=== PATIENT | female | born 1955 | race Caucasian/White ===

== ENCOUNTER 2016-12-02 12:24 | Inpatient (IN) | payer OTHER, BC ==
[~2016-12-02] VITALS: Ht 172.7 cm; Wt 73.7 kg
--- NOTE | ~2016-12-02 | EKG ---
[place] [address] [facility] [place] [address] ELECTROCARDIOGRAM REPORT Name: ELIESER BAUTISTA Room #: 208-P ADM IN M.R.#: [id number] Admission: 12/02/16 Attend Phys: Brandon Ferguson MD Discharge: Date of : 51 Report #: [id number] THIS REPORT FOR: //name// [facility] ED Test Date: 2016-12-02 Test Time: 12:25:25 Pat Name: ELIESERCHARLIE BAUTISTA Department: Room: 208 Gender: F Computational Physicist: MICHAEL : 1955 Requested By: Noam Dickerson Order Number: [id number] MD: Clovis Roque Measurements Intervals [place] Rate: 68 P: 35 NC: 196 QRS: -49 QRSD: 129 T: 115 QT: 464 QTc: 494 Interpretive Statements Sinus rhythm LVH with IVCD, LAD and secondary repol abnrm Anterior ST elevation, probably due to LVH Borderline prolonged QT interval Compared to ECG 03/27/2014 07:28:22 Intraventricular conduction delay now present ST (T wave) deviation now present Left-axis deviation no longer present Myocardial infarct finding no longer present Electronically Signed On 12-02-2016 22:30:04 CDT by Clovis Roque [email or web address] <ELECTRONICALLY SIGNED> By: Clovis Roque MD 12/02/16 2230 1225 1225 Clovis Roque MD /EPI
--- NOTE | ~2016-12-02 | EKG ---
[place] [address] [facility] [place] [address] ELECTROCARDIOGRAM REPORT Name: ELIESER BAUTISTA Room #: 208-P ADM IN M.R.#: [id number] Admission: 12/02/16 Attend Phys: Brandon Ferguson MD Discharge: Date of : 51 Report #: [id number] THIS REPORT FOR: //name// [facility] Test Date: 2016-12-04 Test Time: 11:56:22 Pat Name: ELIESER BAUTISTA Department: Room: 208 P Gender: F Cutter Finisher: Mag SAHU : 1955 Requested By: Joshua Levy Order Number: [id number] MD: Vik Pahm Measurements Intervals [place] Rate: 69 P: 58 MN: 210 QRS: -50 QRSD: 126 T: 93 QT: 464 QTc: 497 Interpretive Statements Sinus rhythm with first-degree AV block LVH with IVCD, LAD and secondary repol abnrm Anterior ST elevation, probably due to LVH Borderline prolonged QT interval Compared to ECG 12/03/2016 07:57:26 No significant change was found Electronically Signed On 12-05-2016 8:23:47 CDT by Vik Pham [email or web address] <ELECTRONICALLY SIGNED> By: Vik Pham MD, [facility] 12/05/16 0823 1156 1156 Vik Pham MD, [facility] /EPI
--- NOTE | ~2016-12-02 | EKG ---
[place] [address] [facility] [place] [address] ELECTROCARDIOGRAM REPORT Name: ELIESER BAUTISTA Room #: 208-P ADM IN M.R.#: [id number] Admission: 12/02/16 Attend Phys: Brandon Ferguson MD Discharge: Date of : 51 Report #: [id number] THIS REPORT FOR: //name// [facility] Test Date: 2016-12-03 Test Time: 07:57:26 Pat Name: ELIESER BAUTISTA Department: Room: 208 P Gender: F Pharmaceutical Worker: Mag SAHU : 1955 Requested By: Brandon Ferguson Order Number: [id number] MD: Vik Pham Measurements Intervals [place] Rate: 71 P: 21 DE: 224 QRS: -47 QRSD: 127 T: 95 QT: 453 QTc: 493 Interpretive Statements Sinus rhythm Prolonged DE interval Nonspecific IVCD with LAD Left ventricular hypertrophy with repolarization abnormality Anterior Q waves, possibly due to LVH Compared to ECG 12/02/2016 12:25:25 No significant change was found Electronically Signed On 12-04-2016 8:44:59 CDT by Vik Pham [email or web address] <ELECTRONICALLY SIGNED> By: Vik Pham MD, [facility] 12/04/16 0844 0757 0757 Vik Pham MD, [facility] /EPI
--- NOTE | ~2016-12-02 | CATHLAB ---
[facility] [employer] [place] [address] INVASIVE PROCEDURE REPORT Name: ELIESER BAUTISTA Room #: 208-P [facility] IN [facility]#: [id number] Admission: 12/02/16 Attend Phys: Brandon Ferguson, Discharge: Date of : 51 Date of Service: 12/04/16 1425 Report #: [id number] THIS REPORT FOR: //name// APPROVED REPORT Patient Details Patient Status: In-Patient Room #: The patient is a 61 year-old female Event Personnel Joshua Levy Assistant Pastry Chef, Jaqueline Stewart RN RN, Jenn HardwickubNesha David Monitor, Mena Rogers Monitor Procedures Performed Left Heart Cath Coronaries, By[facility] Graft[facility] [id number] [facility] Coronary Angiography with grafts, Left Heart Catheterization Indication Unstable angina Risk Factors Hypercholesterolemia, Coronary Artery DiseaseRenal Failure Previous Procedures/Diagnoses Previous CABGPrevious PCI, Previous FL Procedure Narrative The Right Groin^ was infiltrated with 1% Lidocaine subcutaneous anesthesia. A PINNACLE 4FR Sheath #[id number] sheath was inserted into the RFA^. Coronary angiography was performed using coronary diagnostic catheters. The right coronary system was accessed and visualized with a JR4 catheter. The left coronary system was accessed and visualized with a JL4 catheter. The left ventricle was accessed and visualized with a MP2 catheter. Left ventricular/Aortic Valve gradient assessed via catheter pullback. The patient tolerated the procedure well and there were no complications associated with the procedure. Intraoperative Conscious Sedation Sedation start time: 10:08 Case end Time: 11:02 Versed 2.0 mg [facility] [address] [place] [address] INVASIVE PROCEDURE REPORT Name: ELIESER BAUTISTA Room #: 208-P [facility]#: [id number] Admission: 12/02/16 Attend Phys: Brandon Ferguson, Discharge: Date of : 51 Date of Service: 12/04/16 1425 Report #: [id number] Fluoro Time: 18.46 minutes Dose: 1318 mGy Contrast Type and Amount: Visipaque 200 ml Coronary Angiography The patient's coronary anatomy is right dominant. Diagnostic Cath Left Main No obstructive lesions. LAD Total occlusion at the ostium. Patent HERNÁNDEZ graft, however, after the anastomosis there is severe diffuse disease in the mid and LAD segments. Circumflex Multiple overlapping stents in the proximal and mid segments of the left circumflex artery, patent with minimal restenosis. However, this supplies a small distal marginal artery. Right Coronary Patent SVG to the distal RCA, fills a moderate size PDA and right posterior lateral branch. No flow-limiting lesions within the vein graft or arterial branches. Supplies collateral blood flow to septal perforators, apical LAD, distal marginals. Ramus Multiple overlapping stents in the proximal and mid segments of the ramus artery, patent with no flow-limiting lesions. Left Ventriculography Left Ventriculography was not performed. Ejection Fraction was 25-30% based off patient's Echocardiogram. Hemodynamics The aortic pressure is 176/66 mmHg with a mean of 113 mmHg. The left ventricular pressure is 180/16 mmHg with a mean of mmHg. The left ventricular end diastolic pressure is 31 mmHg. PCI Technique Lesion A LAUNCHER 6FR AR1 #[id number] Guide Catheter was used to engage the SVG ostium. A Luge Wire .014 x 182CM #[id number] Interventional Guidewire was used to cross the lesion. BALLOON DILATION A Balloon catheter Sprinter OTW 3.0 x 15 #[id number] was inserted and inflated up to adela for seconds. The vein graft to the distal marginal branch was attempted. I was able to pass a wire to the distal segment of the vein graft. Injection through a small end hole balloon revealed a total occlusion. This occlusion appears to be chronic and not a acute event. [facility] [address] [place] [address] INVASIVE PROCEDURE REPORT Name: ELIESER BAUTISTA Room #: 208-P [facility] IN ..#: [id number] Admission: 12/02/16 Attend Phys: Brandon Ferguson, Discharge: Date of : 51 Date of Service: 12/04/16 1425 Report #: [id number] Conclusion 1. Unsuccessful PCI involving a SVG to a terminal OM branch- there is a total occlusion at the distal segment of the vein graft, most likely a chronic occlusion. 2. Patent stents in the [place] ramus artery and left circumflex artery. 3. Patent SVG, supplying blood to a moderate size PDA and right posterior lateral artery. 4. Severe diffuse disease in the mid and distal segments of the [place] LAD, medical therapy is recommended. Recommendations Cardiac Rehabilitation Referral Medical Therapy <ELECTRONICALLY SIGNED> By: Joshua Levy MD 12/04/16 1425 1425 1425 Joshua Levy MD /INF
--- NOTE | ~2016-12-02 | 2DMMODE ---
[facility] [address] [place] [address] 2 D/M-MODE ECHOCARDIOGRAM Name: ELIESER BAUTISTA Room #: 208-P [facility] IN ..#: [id number] Admission: 12/02/16 Attend Phys: Brandon Ferguson, Discharge: Date of : 51 Date of Service: 12/03/16 1541 Report #: [id number] THIS REPORT FOR: //name// APPROVED REPORT Study performed: 12/03/2016 13:54:13 EXAM: Comprehensive 2D, Doppler, and color-flow Echocardiogram Patient Location: Bedside Room #: 208 Indications Diabetes CAD Hypertension/HDD 2D Dimensions RVDd: 34.32 mm LVEF(%): 40.07 (>50%) IVSd: 12.27 (7-11mm) LVOT Diam: 19.25 (18-24mm) LVDd: 51.44 mm PWd: 11.92 (7-11mm) Ascending Ao: 28.14 (22-36mm) LVDs: 41.34 (25-40mm) Aortic Root: 26.33 mm IVC: 11.00 mm Moran's LVEF: 40.07 % Volumes Left Atrial Volume (Systole) Single Plane 4CH: 53.64 mL Single Plane 2CH: 41.27 mL LA ESV Index: 30.00 mL/m2 Aortic Valve AoV Peak Mannie.: 2.32 m/s AO Peak Gr.: 21.51 mmHg LVOT Max P.72 mmHg AO Mean Gr.: 9.30 mmHg LVOT Mean P.92 mmHg AO V2 Mean: 1.40 m/s LVOT Max V: 0.96 m/s AO V2 VTI: 50.34 cm LVOT Mean V: 0.64 m/s JIMENEZ (VTI): 1.31 cm2 LVOT V1 VTI: 22.74 cm JIMENEZ Vmax: 1.21 cm2 SV (LVOT): 66.13 mL Mitral Valve E/A Ratio: 0.9 MV Decel. Time: 163.36 ms MV E Max Mannie.: 0.87 m/s [facility] [place] [address] 2 D/M-MODE ECHOCARDIOGRAM Name: ELIESER BAUTISTA Room #: 208-P [facility]#: [id number] Admission: 12/02/16 Attend Phys: Brandon Ferguson, Discharge: Date of : 51 Date of Service: 12/03/16 1541 Report #: [id number] MV A Mannie.: 0.93 m/s MV PHT: 47.37 ms IVRT: 93.43 ms Pulmonary Valve PV Peak Mannie.: 1.13 m/s PV Peak Gr.: 5.08 mmHg Pulmonary Vein P Vein S: 0.50 m/s P Vein A: 0.10 m/s P Vein D: 0.39 m/s P Vein A Dur.: 93.4 msec P Vein S/D Ratio: 1.28 Tricuspid Valve TR Peak Mannie.: 2.51 m/s RAP Estimate: 5.00 mmHg TR Peak Gr.: 25.25 mmHg Left Ventricle The left ventricle is normal size. There is normal left ventricular wall thickness. Left ventricular systolic function is reduced with severe hypokinesis of the mid to distal anteroseptal wall LVEF is 35%. Mild diastolic dysfunction is present (impaired relaxation pattern). Right Ventricle The right ventricle is normal size. The right ventricular systolic function is normal. Atria Left atrium is dilated. The right atrium size is normal. Aortic Valve The Aortic valve is sclerotic. Trace aortic regurgitation. There is mild valvular aortic stenosis. Calculated aortic valve area is 1.2 cm2 with maximum pressure gradient of 21.5 mmHg and mean pressure gradient of 9.3 mmHg. Mitral Valve The mitral valve is normal in structure. Trace mitral regurgitation. No evidence of mitral valve stenosis. Tricuspid Valve The tricuspid valve is normal in structure. Trace to mild tricuspid regurgitation. Pulmonic Valve Pulmonic valve is not well visualized. Trace pulmonic [facility] [address] [place] [address] 2 D/M-MODE ECHOCARDIOGRAM Name: ELIESER BAUTISTA Room #: 208-P [facility] IN M.R.#: [id number] Admission: 12/02/16 Attend Phys: Brandon Ferguson, Discharge: Date of : 51 Date of Service: 12/03/16 1541 Report #: [id number] regurgitation. Great Vessels The aortic root is normal in size. IVC is normal in size and collapses >50% with inspiration. <Conclusion> The left ventricle is normal size. Left ventricular systolic function is reduced with severe hypokinesis of the mid to distal anteroseptal wall LVEF is 35%. Left atrium is dilated. The Aortic valve is sclerotic. Trace aortic regurgitation. There is mild valvular aortic stenosis. Calculated aortic valve area is 1.2 cm2 with maximum pressure gradient of 21.5 mmHg and mean pressure gradient of 9.3 mmHg. The mitral valve is normal in structure. Trace mitral regurgitation. Trace to mild tricuspid regurgitation. Trace pulmonic regurgitation. <ELECTRONICALLY SIGNED> By: Domo Sauer MD 12/03/16 1541 1541 1541 Domo Sauer MD /INF
[~2016-12-02 12:24] MED LIST: ALLERGY10 M1 PO; ALPRAZOLAM 0.50.5 MG PO; ASPIRIN EC325 M1 PO; ATORVASTATIN CA40 MG PO; CABERGOLINE 0.0.5 M1 PO; CABERGOLINE 0.0.5 MG PO; CALCITRIOL0.5 MCG PO; CARVEDILOL25 MG PO; COLACE100 MG PO; COUMADIN 2 MG TA2 M1 PO; COUMADIN 3 MG TA3 M1 PO; DEMADEX20 MG PO; ELEMENTAL ZINC30 MG PO; EPOGEN2000 UNIT/ IJ; FERRIC CITRATE210 MG PO; FLONASE 0.05%50 MCG NASAL; FOSRENOL1000 MG PO; GLUCAGEN1 M2 IJ; HYDROCODON-ACE1 EAC5 PO; HYDROCODON-ACE1 EAC8 PO; IMDUR 60 MG TAB60 M1 PO; LEVOTHYROXINE 0.15MG PO; LORATIDINE 10 M10 M1 PO; NEPHROCAPS SOFT1 CAP PO; NITROSTAT0.4 M1 SL; NOVALOG; PACERONE 200 M200 M1 PO; PLAVIX 75 MG TA75 M1 PO; PROAIR HFA8.5 GM INH; PRORENAL VITAL1 EACH PO; REGLAN 10 MG TA10 M1 PO; SENSIPAR 30 MG30 M1 PO; SIMVASTATIN20 MG PO; SIMVASTATIN40 MG PO; SYNTHROID75 MCG PO; WELLBUTRIN 100100 MG PO; WELLBUTRIN 75 M75 M1 PO; ZOFRAN ODT4 MG PO
[2016-12-02 12:26] VITALS: BP 146/63
[2016-12-02 12:57] LABS: ABSOLUTE NEUTROPHILS 3.7 thou/uL (1.4-8.2); BASOPHILS 1.2 % (0.0-2.0); EOSINOPHILS 7.1 % (0.0-3.0); HEMATOCRIT 31.5 % (37.0-47.0); HEMOGLOBIN 10.8 gm/dL (12.0-15.0); LYMPHOCYTES 17.9 % (24.0-44.0); MCHC 34.1 g/dL (28.0-37.0); MCV 102.6 fL (80.0-100.0); MONOCYTES 9.8 % (1.0-8.0); PLATELET COUNT 124 thou/uL (150-400); RBC 3.07 mil/uL (4.20-5.00); RDW 16.3 % (10.5-14.5); WBC 5.8 thou/uL (4.0-11.0)
[2016-12-02 12:59] LABS: MANUAL DIFF NO
[2016-12-02 13:05] LABS: ANION GAP 11 mmol/L (7-16); BUN 92 mg/dL (7-18); CALCIUM 8.6 mg/dL (8.5-10.1); CHLORIDE 98 mmol/L (98-107); CO2 25 mmol/L (21-32); CREATININE 7.8 mg/dL (0.6-1.0); GLUCOSE 204 mg/dL (74-106); POTASSIUM 5.8 mmol/L (3.5-5.1); SODIUM 134 mmol/L (136-145)
[2016-12-02 13:17] LABS: NT-PRO BRAIN NAT PEPTIDE 5851 pg/mL (<300); TROPONIN-I < 0.04 ng/mL (<0.04-0.07)
[2016-12-02 14:33] VITALS: BP 162/81
[2016-12-02 14:50] VITALS: BP 167/59
[2016-12-02] MEDS ORDERED: AMIODARONE HCL100 MG PO (15:12)
[2016-12-02] MEDS ORDERED: ATIVAN1 MG PO (15:15)
[2016-12-02 19:41] VITALS: BP 150/59
[2016-12-02 23:21] VITALS: BP 154/61
[2016-12-03 00:47] LABS: HEMATOCRIT 31.4 % (37.0-47.0); HEMOGLOBIN 10.8 gm/dL (12.0-15.0); MCH 34.9 pg (26.0-34.0); MCHC 34.3 g/dL (28.0-37.0); MCV 101.8 fL (80.0-100.0); RBC 3.08 mil/uL (4.20-5.00); RDW 15.8 % (10.5-14.5)
[2016-12-03 01:05] LABS: ALBUMIN 3.2 g/dL (3.4-5.0); CALCIUM 8.1 mg/dL (8.5-10.1); CREATININE 8.3 mg/dL (0.6-1.0); PHOSPHORUS 6.6 mg/dL (2.5-4.9); POTASSIUM 5.5 mmol/L (3.5-5.1)
[2016-12-03 04:02] VITALS: BP 155/65
[2016-12-03 12:05] VITALS: BP 143/58
[2016-12-03 15:45] VITALS: BP 159/68
[2016-12-03 19:53] VITALS: BP 122/59
[2016-12-04] VITALS (9 sets, daily range): BP systolic 103–143; BP diastolic 49–63
[2016-12-04 08:44] LABS: URINE BILIRUBIN NEGATIVE (Negative); URINE BLOOD NEGATIVE (Negative); URINE COLOR YELLOW; URINE GLUCOSE-RANDOM* NEGATIVE (Negative); URINE KETONES NEGATIVE (Negative); URINE NITRITE NEGATIVE (Negative); URINE PROTEIN (DIPSTICK) 1+ (Negative); URINE UROBILINOGEN 0.2 E.U./dl (0.2-1.0)
[2016-12-04 08:49] LABS: CASTS None Seen /LPF (None Seen); CRYSTALS None Seen /LPF (None Seen); SQUAMOUS >10 Many /LPF (0-3)
[2016-12-04 08:50] LABS: URINE RBC 0-2 Rare /HPF (0-2); URINE WBC 6-15 Few /HPF (0-5)
[2016-12-05 03:51] VITALS: BP 115/46
[2016-12-05 07:44] VITALS: BP 157/62
[2016-12-05 08:51] LABS: CALCIUM 8.4 mg/dL (8.5-10.1); POTASSIUM 4.5 mmol/L (3.5-5.1); TROPONIN-I 0.6 ng/mL (<0.04-0.07)
[2016-12-05 08:52] LABS: CREATININE 4.5 mg/dL (0.6-1.0)
[2016-12-05] MEDS ORDERED: IMDUR 60 MG TAB60 M1 PO (09:26)
[2016-12-05 09:35] VITALS: BP 157/62
[2016-12-05 10:41] VITALS: BP 125/60
[2016-12-05 13:13] VITALS: BP 157/62
== END 2016-12-05 13:13 | disposition home or self-care (01) | DRG 250 ==
LOC: ER 12:24 → 2N 13:46 → EROBS 13:46 → 2N 14:34
PROVIDERS: Emergency Medicine; Internal Medicine; Internal Medicine Nephrology; Nurse Practitioner Gerontology
PROC: B21F1ZZ Fluoroscopy of Other Bypass Graft using Low Osmolar Contrast (ICD-10-PCS; principal; 2016-12-04)
PROC: 4A023N7 Measurement of Cardiac Sampling and Pressure, Left Heart, Percutaneous Approach (ICD-10-PCS; principal; 2016-12-04)
PROC: B2111ZZ Fluoroscopy of Multiple Coronary Arteries using Low Osmolar Contrast (ICD-10-PCS; principal; 2016-12-04)
PROC: 02703ZZ Dilation of Coronary Artery, One Artery, Percutaneous Approach (ICD-10-PCS; 2016-12-04)
PROC: 5A1D60Z (ICD-10-PCS; 2016-12-05)
DX: I25.110 Atherosclerotic heart disease of native coronary artery with unstable angina pectoris (principal); N18.6 End stage renal disease; I12.0 Hypertensive chronic kidney disease with stage 5 chronic kidney disease or end stage renal disease; I25.5 Ischemic cardiomyopathy; E11.51 Type 2 diabetes mellitus with diabetic peripheral angiopathy without gangrene; I48.91 Unspecified atrial fibrillation; Z60.2 Problems related to living alone; E87.5 Hyperkalemia; E11.22 Type 2 diabetes mellitus with diabetic chronic kidney disease; Z96.1 Presence of intraocular lens; D64.9 Anemia, unspecified; J45.909 Unspecified asthma, uncomplicated; E03.9 Hypothyroidism, unspecified; Z95.5 Presence of coronary angioplasty implant and graft; Z79.899 Other long term (current) drug therapy; Z87.81 Personal history of (healed) traumatic fracture; Z95.1 Presence of aortocoronary bypass graft; Z90.710 Acquired absence of both cervix and uterus; Z88.1 Allergy status to other antibiotic agents; Z98.42 Cataract extraction status, left eye; Z98.41 Cataract extraction status, right eye; Z91.041 Radiographic dye allergy status; Z88.2 Allergy status to sulfonamides; Z88.0 Allergy status to penicillin; Z88.8 Allergy status to other drugs, medicaments and biological substances; Z91.040 Latex allergy status; Z87.891 Personal history of nicotine dependence; Z95.810 Presence of automatic (implantable) cardiac defibrillator; I25.2 Old myocardial infarction; Z86.73 Personal history of transient ischemic attack (TIA), and cerebral infarction without residual deficits
CPT/HCPCS: 10081; 32100

== ENCOUNTER 2016-12-24 10:28 | Inpatient (IN) | payer OTHER, BC ==
[2016-12-24] VITALS (7 sets, daily range): BP systolic 130–171; BP diastolic 44–79
[~2016-12-24] VITALS: Ht 172.7 cm; Wt 68.6 kg
--- NOTE | ~2016-12-24 | HC ---
[facility] [place] [address] CONSULTATION Name: ELIESER BAUTISTA Room #: 210-P [facility] IN M.R.#: [id number] Admission: 12/24/16 Attend Phys: Abisai Muñoz DO Discharge: 12/25/16 Date of : 51 Report #: [id number] THIS REPORT FOR: //name// CC: Krishna Muñoz REASON FOR CONSULTATION: End-stage renal disease. REASON FOR THE PRESENTATION: Chest pain. HISTORY OF PRESENT ILLNESS: The patient is well known to me. She is a 61-year-old with past medical history of refractory angina; coronary artery disease; status post CABG; end-stage renal disease, maintained on dialysis. She just got discharged from the hospital a couple of weeks ago after an unsuccessful PCI of the SVG to the terminal obtuse marginally branch. At that time, this was deemed to be chronic ____ and medical management was advised. The patient continued to have chest pain over the last 24 hours [address] to dialysis. This was responding to nitroglycerin. The chest pain was typical of her cardiac pain. No nausea or vomiting. This was associated with shortness of breath. She presented for further evaluation and management and was admitted accordingly. I was asked to manage her end-stage renal disease and dialysis regimen. ALLERGIES: PENICILLIN, SULFA, CIPROFLOXACIN. MEDICATIONS: 1. ____. 2. Carvedilol. 3. Nitroglycerin. 4. Atorvastatin. 5. Levothyroxine. 6. Plavix. PAST MEDICAL HISTORY: 1. End-stage renal disease. 2. Ischemic cardiomyopathy. 3. Coronary artery disease. 4. Peripheral arterial disease. 5. Hypertension. 6. Hyperlipidemia. 7. Obstructive sleep apnea. 8. COPD. 9. Diabetes mellitus. 10. Pulmonary hypertension. PAST SURGICAL HISTORY: 1. Hysterectomy. [facility] [address] [place] [address] CONSULTATION Name: ELIESER BAUTISTA Room #: 210-P [facility]#: [id number] Admission: 12/24/16 Attend Phys: Abisai Muñoz DO Discharge: 12/25/16 Date of : 51 Report #: [id number] 2. Mastectomy. 3. Cataract. 4. CABG. 5. AV fistula. 6. AV graft. 7. Bone marrow biopsy. FAMILY HISTORY: Significant for diabetes mellitus and hypertension. SOCIAL HISTORY: She quit smoking about a year ago. No drug or alcohol abuse. REVIEW OF SYSTEMS: GENERAL: No fever or chills. CARDIOVASCULAR: Significant for chest pain and shortness of breath. PULMONARY: Significant for shortness of breath, cough. GASTROINTESTINAL: No nausea or vomiting. NEUROLOGICAL: No headache, no dizziness. PHYSICAL EXAMINATION: GENERAL: She is alert, oriented, in no apparent distress. VITAL SIGNS: Blood pressure is 135/50. Temperature 36.9. HEAD AND NECK: No jugular venous distention. CHEST: Decreased air entry bilaterally, but no crackles. CARDIOVASCULAR: No rub detected. ABDOMEN: Soft, nontender. LOWER EXTREMITIES: No edema. LABORATORY DATA: Reviewed. Troponin was negative. Hemoglobin was 8.1, platelets was 111. Chest x-ray reviewed. There is no evidence of pulmonary edema. She has a pacemaker. ASSESSMENT AND IMPRESSION: 1. End-stage renal disease. 2. Coronary artery disease, status post coronary artery bypass graft. 3. Cardiomyopathy with automatic implantable cardioverter-defibrillator. 4. Hyperlipidemia. 5. Hypertension. 6. Peripheral arterial disease. 7. Anemia of chronic disease. 8. Hyperkalemia. 9. Hypothyroidism. PLAN: 1. Dialysis was arranged for the patient as usual every Saturday, Saturday and [facility] [address] [place] [address] CONSULTATION Name: ELIESER BAUTISTA Room #: 210-P [facility]#: [id number] Admission: 12/24/16 Attend Phys: Abisai Muñoz DO Discharge: 12/25/16 Date of : 51 Report #: [id number] Saturday. 2. Blood pressure control. 3. She is currently on nitroglycerin drip. 4. Cardiac issues are being address by Cardiology. 5. Blood sugar control. 6. Resume thyroid medications. 7. Stable from the renal perspective with resolution of her hyperkalemia. <ELECTRONICALLY SIGNED> By: Max Cruz MD 12/28/16 0800 0732 0746 Max Cruz MD /frida
--- NOTE | ~2016-12-24 | EKG ---
[place] [address] [facility] [place] [address] ELECTROCARDIOGRAM REPORT Name: ELIESER BAUTISTA Room #: [facility]#: [id number] Admission: Attend Phys: Discharge: Date of : 51 Report #: [id number] THIS REPORT FOR: //name// [facility] ED Test Date: 2016-12-24 Test Time: 10:27:59 Pat Name: ELIESER BAUTISTA Department: Room: Gender: F Director Medical Writing: [id number] : 1955 Requested By: Margi Fischer Order Number: [id number] MD: Measurements Intervals [place] Rate: 76 P: 135 CA: 247 QRS: -56 QRSD: 142 T: 100 QT: 453 QTc: 510 Interpretive Statements Sinus or ectopic atrial rhythm Prolonged [place] interval Left bundle branch block Compared to ECG 12/04/2016 11:56:22 Ectopic atrial rhythm now present First degree AV block now present Left bundle-branch block now present Sinus rhythm no longer present Intraventricular conduction delay no longer present Left ventricular hypertrophy no longer present Early repolarization no longer present ST (T wave) deviation no longer present [email or web address] By: 1027 1027 Epiphany Epiphany, MA /EPI
[~2016-12-24 10:28] MED LIST changes: +AMIODARONE HCL100 MG PO; +ATIVAN1 MG PO
[2016-12-24 10:46] LABS: ABSOLUTE NEUTROPHILS 5.3 thou/uL (1.4-8.2); BASOPHILS 0.8 % (0.0-2.0); EOSINOPHILS 4.8 % (0.0-3.0); HEMATOCRIT 25.9 % (37.0-47.0); LYMPHOCYTES 12.1 % (24.0-44.0); MCH 36.1 pg (26.0-34.0); MCHC 34.9 g/dL (28.0-37.0); MCV 103.5 fL (80.0-100.0); MONOCYTES 10.2 % (1.0-8.0); PLATELET COUNT 117 thou/uL (150-400); POLYS 72.1 % (36.0-66.0); RDW 15.8 % (10.5-14.5); WBC 7.4 thou/uL (4.0-11.0)
[2016-12-24 10:49] LABS: MANUAL DIFF NO
[2016-12-24 10:53] LABS: CALCIUM 8.2 mg/dL (8.5-10.1); CREATININE 9.3 mg/dL (0.6-1.0); POTASSIUM 5.5 mmol/L (3.5-5.1)
[2016-12-24 11:02] LABS: TROPONIN-I 0.05 ng/mL (<0.04-0.07)
[2016-12-24 11:45] LABS: APTT 26.5 Seconds (24.5-32.8); INR 1.1; PROTIME 10.8 Seconds (9.3-11.4)
[2016-12-24] MEDS ORDERED: IMDUR 30 MG TAB30 M1 PO (13:26)
[2016-12-24] MEDS ORDERED: IMDUR 60 MG TAB60 M1 PO (13:27)
[2016-12-24] MEDS ORDERED: ZOFRAN ODT4 MG PO (13:30)
[2016-12-25 04:32] LABS: HEMATOCRIT 22.6 % (37.0-47.0); HEMOGLOBIN 8.1 gm/dL (12.0-15.0); MCH 36.6 pg (26.0-34.0); MCHC 35.9 g/dL (28.0-37.0); PLATELET COUNT 111 thou/uL (150-400); RBC 2.22 mil/uL (4.20-5.00); WBC 4.8 thou/uL (4.0-11.0)
[2016-12-25 04:33] LABS: MANUAL DIFF YES
[2016-12-25 04:43] LABS: CREATININE 5.2 mg/dL (0.6-1.0); POTASSIUM 4.5 mmol/L (3.5-5.1)
[2016-12-25 04:45] VITALS: BP 135/50
[2016-12-25 05:46] LABS: ABSOLUTE NEUTROPHILS 2.7 thou/uL (1.4-8.2); ANISOCYTOSIS 1+; MACROCYTES 1+; TOTAL CELL COUNT 100
[2016-12-25 07:58] VITALS: BP 135/84
[2016-12-25] MEDS ORDERED: NITROGLYCERIN1 EACH TD (08:02)
[2016-12-25] MEDS ORDERED: LEVOTHYROXINE 0.15MG PO (09:26)
[2016-12-25 13:12] VITALS: BP 135/84
== END 2016-12-25 14:18 | disposition home or self-care (01) | DRG 302 ==
LOC: ER 10:28 → EROBS 11:08 → 2N 11:08
PROVIDERS: Emergency Medicine; Family Medicine
DX: I25.119 Atherosclerotic heart disease of native coronary artery with unspecified angina pectoris (principal); N18.6 End stage renal disease; I12.0 Hypertensive chronic kidney disease with stage 5 chronic kidney disease or end stage renal disease; I25.5 Ischemic cardiomyopathy; E78.5 Hyperlipidemia, unspecified; G47.33 Obstructive sleep apnea (adult) (pediatric); J44.9 Chronic obstructive pulmonary disease, unspecified; E11.22 Type 2 diabetes mellitus with diabetic chronic kidney disease; E11.51 Type 2 diabetes mellitus with diabetic peripheral angiopathy without gangrene; I27.2 Other secondary pulmonary hypertension; E87.5 Hyperkalemia; E03.9 Hypothyroidism, unspecified; D63.8 Anemia in other chronic diseases classified elsewhere; Z96.1 Presence of intraocular lens; I48.91 Unspecified atrial fibrillation; Z88.0 Allergy status to penicillin; Z88.2 Allergy status to sulfonamides; Z88.1 Allergy status to other antibiotic agents; Z90.710 Acquired absence of both cervix and uterus; Z95.1 Presence of aortocoronary bypass graft; Z83.3 Family history of diabetes mellitus; Z82.49 Family history of ischemic heart disease and other diseases of the circulatory system; Z87.891 Personal history of nicotine dependence; Z95.810 Presence of automatic (implantable) cardiac defibrillator; Z91.040 Latex allergy status; Z91.041 Radiographic dye allergy status; Z79.899 Other long term (current) drug therapy; Z90.13 Acquired absence of bilateral breasts and nipples; Z98.42 Cataract extraction status, left eye; Z98.41 Cataract extraction status, right eye; Z95.5 Presence of coronary angioplasty implant and graft; Z99.2 Dependence on renal dialysis
CPT/HCPCS: 10081

== ENCOUNTER → 2017-08-22 | Outpatient (CLI) | payer OTHER, BC ==
[~2017-08-22] MED LIST changes: +IMDUR 30 MG TAB30 M1 PO; +NITROGLYCERIN1 EACH TD
== END ==
LOC: RAD 15:13
DX: I51.7 Cardiomegaly (principal); E11.22 Type 2 diabetes mellitus with diabetic chronic kidney disease; N18.6 End stage renal disease; I25.10 Atherosclerotic heart disease of native coronary artery without angina pectoris